=== PATIENT | female | born 1970 | race African-American/Black ===

== ENCOUNTER 2019-01-16 13:15 | Emergency (ER) | payer SELFPAY ==
[~2019-01-16] VITALS: Ht 170.2 cm; Wt 101.5 kg
[2019-01-16 13:18] VITALS: BP 174/93
[2019-01-16] MEDS ORDERED: IBUPROFEN 200 MG TABLET ONE (14:48)
--- NOTE | 2019-01-16 14:53 | NUR ---
Patient/Caregiver given discharge instructions and they have confirmed that they understand the instructions. Patient ambulatory with steady gait.
[2019-01-16] MEDS ORDERED: IBUPROFEN 200 MG TABLET PO ONE (15:00)
== END 2019-01-16 15:15 | disposition home or self-care (01) ==
LOC: ED 14:55
DX: M77.31 Calcaneal spur, right foot (principal); W22.8XXA Striking against or struck by other objects, initial encounter; Y93.89 Activity, other specified; Y92.009 Unspecified place in unspecified non-institutional (private) residence as the place of occurrence of the external cause; Y99.8 Other external cause status
CPT/HCPCS: 99283